=== PATIENT | male | born 1995 | race Caucasian/White ===

== ENCOUNTER 2017-07-03 15:16 | Emergency (ER) | payer OTHER ==
[2017-07-03 15:24] VITALS: TEMP 98.1; O2SAT 98
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
[2017-07-03 16:17] VITALS: BP 118/71; PULSE 67; RESP 18
== END 2017-07-03 16:16 | disposition home or self-care (01) ==
DX: S63.502A Unspecified sprain of left wrist, initial encounter (principal); V00.131A Fall from skateboard, initial encounter; Y99.8 Other external cause status; Y93.51 Activity, roller skating (inline) and skateboarding
CPT/HCPCS: L3807